=== PATIENT | female | born 2005 ===

== ENCOUNTER 2024-09-30 10:41 | Outpatient (CLI) | payer MEDICAID, SELFPAY ==
[2024-10-04 13:09] LABS: TB Interpretation Negative (Negative)
== END 2024-09-30 10:42 | disposition home or self-care (01) ==
LOC: LBO 10:47
PROVIDERS: PCP Internal Medicine; Visit Provider Pediatrics
DX: Z11.1 Encounter for screening for respiratory tuberculosis (principal)
CPT/HCPCS: 36415; 86480